=== PATIENT | male | born 1980 | race African-American/Black ===

== ENCOUNTER → 2020-06-06 07:37 | Outpatient (CLI) | payer OTHER, SELFPAY ==
--- NOTE | 2020-06-06 | DI.MRI.S_ITS ---
PROCEDURE: MR LUMBAR SPINE WO CON INDICATIONS: Spinal stenosis, lumbar region TECHNIQUE: Noncontrast sagittal T1 spin echo and T2 fast echo, sagittal STIR, axial T1 and T2 fast spin echo through the lumbar spine. In cases with scoliosis, additional coronal T2 fast spin echo may be performed. COMPARISON: [facility], MR, MR LUMBAR SPINE WITHOUT CONTRAST, 03/13/2018, 8:01. [facility], CR, XR LUMBAR SPINE WITH OBLIQUES, 04/04/2020, 14:06. FINDINGS: Image quality: Excellent. Alignment and Curvature: 5 lumbar type vertebral bodies by plain film. Loss of normal lumbar lordosis. Mild grade 1 retrolisthesis of L4 on L5 and L5 on S1. Bone Marrow: Marrow is of normal overall signal. No acute vertebral body compression fractures. Spinal Cord: Conus medullaris terminates at the upper L2 level. Visualized cord demonstrates normal signal and size. Paraspinous Soft Tissues: No paravertebral masses. L1-L2: Normal appearance. L2-L3: Normal appearance. L3-L4: Mild diffuse disc bulge. Mild facet and ligamentum flavum hypertrophy. Mild epidural lipomatosis. Mild canal stenosis. Mild bilateral foraminal stenosis. No change. L4-L5: Mild facet and ligamentum flavum hypertrophy. Mild epidural lipomatosis. Mild diffuse disc bulge. Mild canal stenosis. Mild bilateral foraminal stenosis. No change. L5-S1: Mild disc height loss and desiccation. Mild diffuse disc bulge with superimposed small central protrusion. Mild facet and ligamentum flavum hypertrophy, right greater than left. Mild canal stenosis. Mild bilateral foraminal stenosis. Right lateral recess stenosis with mild right S1 nerve root compression. No change. IMPRESSION: 1. Multilevel degenerative disc and facet disease, as well as ligamentum flavum hypertrophy and epidural lipomatosis. 2. Mild multilevel canal and foraminal stenosis. 3. Right lateral recess stenosis at L5-S1 associated with right S1 nerve root compression. Recommend correlation with clinical symptoms to ascertain relevance of this finding. Dictated by: Shiv Nugent M.D. on 06/06/2020 at 12:32 Approved by: Shiv Nugent M.D. on 06/06/2020 at 13:09
== END ==
PROVIDERS: Referring Provider Physical Medicine & Rehabilitation; Visit Provider Physical Medicine & Rehabilitation
DX: M48.062 Spinal stenosis, lumbar region with neurogenic claudication (principal); M48.07 Spinal stenosis, lumbosacral region; M51.36 Other intervertebral disc degeneration, lumbar region; M51.37 Other intervertebral disc degeneration, lumbosacral region; E88.2 Lipomatosis, not elsewhere classified
CPT/HCPCS: 72148

== ENCOUNTER → 2021-03-21 16:06 | Outpatient (CLI) | payer OTHER, SELFPAY ==
--- NOTE | 2021-03-21 | DI.MRI.S_ITS ---
PROCEDURE: MR SHOULDER RT WO CON INDICATIONS: Pain in right shoulder TECHNIQUE: Noncontrast oblique coronal T2 fast spin echo with fat saturation, oblique sagittal T1 spin echo and T2 fast spin echo with fat saturation, axial T1 spin echo and T2 fast spin echo with fat saturation through the shoulder. COMPARISON: None. FINDINGS: Image quality: Excellent. Rotator cuff: Tendinosis and low-grade articular and bursal surface partial thickness tear involving distal supraspinatus at its insertion on the humeral head is seen extending to musculotendinous junction. Distal infraspinatus tendinosis at its insertion on the humeral head is seen. Distal subscapularis tendon is intact. Sagittal images demonstrate no rotator cuff muscle atrophy. Bones and bursae: No bone marrow contusions or fractures. Mild acromioclavicular joint osteoarthritic changes are seen with downward osteophyte formation depressing the musculotendinous junction of supraspinatus. Trace amount of subacromial subdeltoid bursal fluid is seen. Capsule and soft tissues: The there is signal abnormality and contour irregularity involving superior anterior labrum at 1:00 Position. The glenohumeral ligaments are intact. The long head of the biceps tendon demonstrates normal location and morphology. The rotator interval appears normal, without fibrosis. The coracohumeral ligament is normal in thickness. IMPRESSION: 1. Tendinosis and low-grade articular and bursal surface partial thickness tear involving distal supraspinatus extending to musculotendinous junction. Distal infraspinatus tendinosis. 2. Mild acromioclavicular joint osteoarthritis. 3. Suggestion of focal superior anterior labral tear at 1:00 position. Dictated by: Guido Bridges M.D. on 03/21/2021 at 17:22 Approved by: Guido Bridges M.D. on 03/21/2021 at 17:28
== END ==
PROVIDERS: Referring Provider Registered Nurse; Visit Provider Registered Nurse
DX: M25.511 Pain in right shoulder (principal); M75.111 Incomplete rotator cuff tear or rupture of right shoulder, not specified as traumatic; M19.011 Primary osteoarthritis, right shoulder
CPT/HCPCS: 73221

== ENCOUNTER → 2022-07-26 09:15 | Outpatient (CLI) | payer OTHER, SELFPAY ==
--- NOTE | 2022-07-26 09:17 | DI.MRI.S_ITS ---
PROCEDURE: MR CERVICAL SPINE WO CON INDICATIONS: Paresthesia of skin TECHNIQUE: Noncontrast sagittal T1 spin echo and T2 fast spin echo, sagittal STIR, foraminal oblique sagittal T2 fast spin echo, and axial gradient echo or T2 fast spin echo through the cervical spine. COMPARISON: None. FINDINGS: Image quality: This examination is limited by involuntary motion artifact. Images are repeated, with some improvement. Alignment and Curvature: There is straightening of the normal cervical lordosis. No focal AP alignment abnormality is seen. Bone Marrow: Marrow demonstrates normal overall signal. Spinal Cord: Visualized spinal cord has normal size and signal. No cerebellar tonsillar herniation. Paraspinous Soft Tissues: No paravertebral masses. Prevertebral soft tissues are normal in thickness. C2-C3: Normal appearance. C3-C4: The disc height and disc signal are relatively well preserved. Mild to moderate disc osteophyte complex is seen. There is moderate right-sided and at least moderate left-sided neural foraminal narrowing. Mild to moderate central canal narrowing is seen. There is associated mass effect upon the ventral spinal cord. C4-C5: The disc height and disc signal are relatively well preserved. Mild to moderate disc osteophyte complex is seen, which is eccentric to the right. There is moderate to severe bilateral neural foraminal narrowing seen. Moderate central canal narrowing is seen. There is associated mass effect upon the ventral spinal cord. C5-C6: The disc height and disc signal are relatively well preserved. Moderate generalized disc osteophyte complex is seen. Mild facet joint hypertrophy is seen. There is at least moderate bilateral neural foraminal narrowing seen. Mild to moderate central canal narrowing is seen. There is associated mass effect upon the ventral spinal cord. C6-C7: The disc height and disc signal are relatively well preserved. A mild degree of generalized disc osteophyte complex is seen. Mild facet joint hypertrophy is seen. Minimal bilateral neural foraminal narrowing can be seen. No significant central canal narrowing is seen. C7-T1: The disc height and disk signal are well-preserved. A mild degree of generalized disc osteophyte complex is seen. Mild facet joint hypertrophy is seen. Mild bilateral neural foraminal narrowing is seen. The central canal is widely patent. IMPRESSION: Multiple levels of premature cervical spine degenerative change are seen, which are worst within the mid cervical spine. Straightening of the normal cervical lordosis is seen, which is commonly observed in patients with muscular spasm. Dictated by: Keegan Christian M.D. on 07/26/2022 at 10:40 Approved by: Keegan Christian M.D. on 07/26/2022 at 10:44
== END ==
PROVIDERS: Referring Provider Registered Nurse; Visit Provider Registered Nurse
DX: M47.812 Spondylosis without myelopathy or radiculopathy, cervical region (principal); R20.2 Paresthesia of skin
CPT/HCPCS: 72141

== ENCOUNTER → 2023-01-10 13:14 | Outpatient (CLI) | payer OTHER, SELFPAY ==
--- NOTE | 2023-01-10 | DI.MRI.S_ITS ---
PROCEDURE: MR LUMBAR SPINE WO CON INDICATIONS: Radiculopathy, lumbar region TECHNIQUE: Noncontrast sagittal T1 spin echo and T2 fast echo, sagittal STIR, and T2 fast spin echo through the lumbar spine. In cases with scoliosis, additional coronal T2 fast spin echo may be performed. COMPARISON: [facility], MR, MR LUMBAR SPINE WO CON, 06/06/2020, 7:51. FINDINGS: Image quality: Excellent. Alignment and Curvature: 5 lumbar type vertebral bodies are present by plain film, with a transitional element at S1. Loss of normal lumbar lordosis. 2 mm of retrolisthesis of L3 on L4, L4 on L5, and L5 on S1. Bone Marrow: Marrow is of normal overall signal. No acute vertebral body compression fractures. Mild reactive signal throughout the endplates of the lumbar spine, most prominent at L5-S1. Spinal Cord: Conus medullaris terminates at the L1-L2 disc space level. Visualized cord demonstrates normal signal and size. Paraspinous Soft Tissues: No paravertebral masses. T12-L1: Normal appearance. L1-L2: Normal appearance. L2-L3: Normal appearance. L3-L4: Mild facet and ligamentum flavum hypertrophy. Mild epidural lipomatosis. Mild diffuse disc bulge. Mild canal stenosis. Mild bilateral foraminal stenosis. No significant change. L4-L5: Mild facet and ligamentum flavum hypertrophy. Mild epidural lipomatosis. Mild disc desiccation and diffuse disc bulge. Mild canal stenosis. Mild bilateral foraminal stenosis. No significant change. L5-S1: Moderate disc desiccation. Mild disc height loss and diffuse disc bulge with superimposed broad-based right posterolateral protrusion. Mild facet and ligamentum flavum hypertrophy. Mild epidural lipomatosis. Moderate canal stenosis, increased from the prior examination. Moderate bilateral foraminal stenosis, increased from the prior examination. IMPRESSION: 1. Multilevel degenerative disc and facet disease, as well as ligamentum flavum hypertrophy and epidural lipomatosis. 2. Multilevel canal and foraminal stenoses, worst at L5-S1 where there is moderate canal stenosis and moderate bilateral foraminal stenosis. Dictated by: Shiv Nugent M.D. on 01/10/2023 at 14:52 Transcribed by: SRINI on 01/10/2023 at 14:54 Approved by: Shiv Nugent M.D. on 01/10/2023 at 16:48
== END ==
PROVIDERS: Referring Provider Physical Medicine & Rehabilitation; Visit Provider Physical Medicine & Rehabilitation
DX: M51.16 Intervertebral disc disorders with radiculopathy, lumbar region (principal); M51.17 Intervertebral disc disorders with radiculopathy, lumbosacral region; M48.061 Spinal stenosis, lumbar region without neurogenic claudication; M48.07 Spinal stenosis, lumbosacral region
CPT/HCPCS: 72148

== ENCOUNTER → 2023-05-21 12:26 | Outpatient (CLI) | payer OTHER, SELFPAY ==
--- NOTE | 2023-05-21 | DI.MRI.S_ITS ---
PROCEDURE: MR SHOULDER RT WO CON INDICATIONS: Right rotar cuff tear TECHNIQUE: Noncontrast oblique coronal T2 fast spin echo with fat saturation, oblique sagittal T1 spin echo and T2 fast spin echo with fat saturation, axial T1 spin echo and T2 fast spin echo with fat saturation through the shoulder. COMPARISON: [facility], MR, MR SHOULDER RT WO CON, 03/21/2021, 16:21. FINDINGS: Image quality: Excellent. Rotator cuff: Low-grade articular and bursal surface partial thickness tear involving distal supraspinatus at its insertion on the humeral head is seen extending to musculotendinous junction. Distal infraspinatus tendinosis and low-grade articular surface partial-thickness tear is seen. Distal subscapularis tendon is intact. No full-thickness rotator cuff tendon rupture. Sagittal images demonstrate no significant rotator cuff muscle atrophy. Bones and bursae: No bone marrow contusions or fractures. Mild acromioclavicular joint osteoarthritic changes are seen with joint space narrowing and small downward osteophyte formation depressing the musculotendinous junction of supraspinatus. The acromion demonstrates conventional anatomy, without an os acromiale. small amount of subacromial subdeltoid bursal fluid is present. Capsule and soft tissues: There is signal abnormality and contour irregularity involving superior anterior labrum at 1 to 2 o'clock position suggestive of superior anterior labral tear. The long head of the biceps tendon demonstrates normal location and morphology. The rotator interval appears normal, without fibrosis. The coracohumeral ligament is normal in thickness. IMPRESSION: 1. Low-grade articular and bursal surface partial thickness tear involving distal supraspinatus extending to musculotendinous junction. Low-grade articular surface partial-thickness tear involving distal infraspinatus. No full-thickness rotator cuff tendon rupture. No muscle atrophy. 2. Mild acromioclavicular joint osteoarthritis. No shoulder fracture or dislocation. Small amount of subacromial subdeltoid bursal fluid, no loose bodies. 3. Suggestion of superior anterior labral tear at 1 to 2 o'clock position. Dictated by: Guido Bridges M.D. on 05/21/2023 at 21:27 Approved by: Guido Bridges M.D. on 05/21/2023 at 21:30
== END ==
PROVIDERS: Referring Provider Orthopaedic Surgery; Visit Provider Orthopaedic Surgery
DX: M75.111 Incomplete rotator cuff tear or rupture of right shoulder, not specified as traumatic (principal); M19.011 Primary osteoarthritis, right shoulder
CPT/HCPCS: 73221

== ENCOUNTER → 2023-07-14 09:52 | Outpatient (CLI) | payer OTHER, SELFPAY ==
[2023-07-14 11:15] LABS: Add Manual Diff / Slide Review NO; Basophils Absolute Auto 0 /uL (0-100); Basophils Percent Auto 0.5 % (0-2); Eosinophils Absolute Auto 0 /uL (0-450); Eosinophils Percent Auto 0.6 % (2-4); Hematocrit 38.7 % (41-53); Hemoglobin 12.9 g/dL (13.5-17.5); Lymphocytes Absolute Auto 1500 /uL (1100-4500); Lymphocytes Percent Auto 20.1 % (25-40); Mean Corpuscular HGB Conc 33.4 % (30-36); Mean Corpuscular Hemoglobin 29.8 PG (26-34); Monocytes Absolute Auto 600 /uL (0-900); Monocytes Percent Auto 7.9 % (3-14); Neutrophils Absolute Auto 5100 /uL (1500-7000); Neutrophils Percent Auto 70.9 % (50-75); Platelet Count 212 X10^3/uL (150-400); Red Blood Cell Count 4.35 X10^6/uL (4.5-5.9); Red Cell Distribution Width 13.9 % (11.6-14.8); White Blood Cell Count 7.2 X10^3/uL (4.5-11.0)
[2023-07-14 11:21] LABS: Hemoglobin A1C% w Est Avg Glu 5.1 % (4.0-6.0)
[2023-07-14 11:41] LABS: BUN Creatinine Ratio 12.6 (6-22); Blood Urea Nitrogen 12 mg/dL (9-20); Carbon Dioxide 33 mmol/L (22-32); Chloride 97 mmol/L (98-107); Estimated Glomerular Filt Rate > 60 mL/min (>60); Glucose 118 mg/dL (70-100); HEMOLYSIS < 15 (0-50); Potassium 3.5 mmol/L (3.4-5.1); Sodium 136 mmol/L (137-145)
== END ==
PROVIDERS: Referring Provider Orthopaedic Surgery Orthopaedic Surgery of the Spine; Visit Provider Orthopaedic Surgery Orthopaedic Surgery of the Spine
DX: Z01.812 Encounter for preprocedural laboratory examination (principal); R73.9 Hyperglycemia, unspecified
CPT/HCPCS: 36415; 80048; 83036; 85025

== ENCOUNTER → 2023-07-17 13:01 | Outpatient (CLI) | payer OTHER, SELFPAY | PROVIDERS: Referring Provider Orthopaedic Surgery Orthopaedic Surgery of the Spine; Visit Provider Orthopaedic Surgery Orthopaedic Surgery of the Spine | DX: Z01.818 Encounter for other preprocedural examination (principal) | CPT/HCPCS: 93005 ==

== ENCOUNTER 2023-08-08 11:15 | Inpatient (IN) | payer OTHER, SELFPAY ==
[2023-07-31 13:44] VITALS: BMI 28.0
[2023-08-08] VITALS (13 sets, daily range): BP systolic 138–208; BP diastolic 74–130; PULSE 66–88; RESP 11–18; TEMP 36.1–36.6; O2SAT 98–100; BMI 28.0
--- NOTE | 2023-08-08 11:50 | PM.PREOP ---
Pre-operative Note Interval Note History & Physical reviewed/Exam performed by Physician: Yes Changes to H&P: No
[2023-08-08] MEDS: LACTATED RINGERS 1,000 ML 42 ML IV ×2 (11:52→13:57)
[2023-08-08] MEDS: ACETAMINOPHEN 325 MG TABLET 975 MG PO (11:53)
[2023-08-08] MEDS: CEFAZOLIN 2 GM/100 ML PREMIX 100 ML IV ×2 (12:52→20:26)
--- NOTE | 2023-08-08 12:57 | SUR.OPER ---
Prone on spine table, head in foam head support, padded chest and pelvic supports, gel pad at knees, lower legs supported by pillows; nipples, genitalia and toes free of pressure, arms secured on foam padded arm boards at <90 degrees abduction. Tape over blanket at thigh secured to table.
[2023-08-08] MEDS: BUPIVACAINE 0.25% (PF) 60 ML, EPINEPHrine 0.15 MG INJ (13:58)
[2023-08-08] MEDS: BUPIVACAINE LIPOSOME 266 MG/20 ML VIAL INJ (14:37)
--- NOTE | 2023-08-08 14:54 | P.OP_ITS ---
Operative Date/Time/Diagnoses Date of procedure: 08/08/23 Time of procedure: 12:30 Pre-op diagnosis: 1. L5-S1 spinal stenosis with radiculopathy 2. Epidural lipomatosis 3. L5-S1 right foraminal stenosis Post-op diagnosis: same Procedure & Clinicians Procedure: 1. L5-S1 Postero-lateral and posterior interbody fusion 2. L5-S1 interbody cage placement. 3. L5-S1 decompressive laminectomy with bilateral facetecomies 4. L5-S1 Posterior non-segmental instrumentation 5. [place] of bone marrow from iliac crest 6. Utilization of microsurgical technique and operating microscope Same procedure as scheduled: Yes Indications: Patient has been having chronic back pain and worsening lumbar radiculopathy. Patient failed multiple conservative management with worsening pain weakness and numbness in his lower extremity. Patient has been having difficulty performing activity of daily living. After discussing risks benefits of treatment options, patient elected proceed with surgery. Surgeon: Janelle Whitmore Machinist Wood: Ernestina Grewal Click Yes if Unassisted: No Anesthesia Type: General Operative Notes Closure Type: primary Specimen(s): none sent Prosthetic devices, grafts, tissues, transplants, or devices: Globus revolve screws, Rise cage Estimated Blood Loss (mL): 50 Blood products transfused: none Procedure in detail: Patient was seen in the preoperative area. Risks and benefits of the surgery was discussed with the patient. Informed consent was obtained from the patient and placed in the chart. Surgical site was marked. Patient was taken to the operative room. General anesthesia was administered. Prophylactic antibiotic was given to the patient less than 30 min before the incision was made. Patient was placed into a prone position on the Alexander table. Patient's back was then prepped and draped in the sterile fashion. Time-out was performed at this time. Using AP and lateral C-arm imaging the interval between L5-S1 was identified and marked on patient's back. A 2 inch incision 2 in from midline was made on the right side first. The fascia was incised in line with skin incision. Globus MARS retractors was placed inside the incision and docked onto the L5 lamina. Using microsurgical technique and operating microscope, a L5 laminectomy and L5- S1 facetectomy was performed using a Kerrison rongeur. The laminectomy and facetectomy was performed in order to decompress patient's cauda equina as well as the nerve roots exiting at the L5-S1 level. The disc space at L5-S1 was identified. And a total diskectomy was performed at L5-S1 level. The endplates were decorticated using a rasp and shaver. The total diskectomy and decortication was performed at L5-S1 level in order to to accomplish a L5-S1 fusion. The local bone from the laminectomy and facetectomy was saved for local bone grafting. After the total diskectomy and decortication was completed, DBM bone graft material was combined with local bone that was harvested earlier. At this time, a separate skin is incision was made over the iliac crest. A Jamshidi needle was inserted into the iliac crest through a separate skin incision. 5 cc of bone marrow aspiration was obtained through the separate skin incision using a Jamshidi needle from the iliac crest. The bone marrow aspiration was combined with local bone and the DBM bone grafting material. The bone grafting material was placed into the L5-S1 interbody space along with a expandable cage. The cage was expanded to its maximum height using the torque limiting screwdriver. At this time a mirror image incision was made on the left side. The fascia was incised in line with the skin incision. Globus MARS retractor was inserted and docked onto the L5-S1 posterolateral gutter. Using the power drill, posterior- lateral decortication was performed at L5-S1 level until bleeding cortical bone was identified. The remaining bone grafting material was placed into the L5-S1 posterior lateral gutter he order to accomplish posterolateral fusion at the L5- S1 level. Using the double C-arm technique, pedicle screws were placed into the L5-S1 pedicles bilaterally. This was done by placing the Jamshidi needle into the pedicles, then placing the guidewires over the Jamshidi needle, and finally placing the cannulated screws over the guidewires bilaterally. After the pedicle screws were placed, 2 titanium rods was locked into the heads of the pedicle screws using locking caps and torque limiting screwdriver. After all the hardware was placed, and confirmed with AP and lateral C-arm imaging, the wound was then irrigated with sterile normal saline and packed with Ray-Kee gauze for 3 min to accomplish hemostasis. After the gauze was removed the deep fascia was closed with #1 Vicryl suture. The subcutaneous layer was closed with 2-0 Vicryl. The skin was closed with skin nikolay. Patient tolerated the procedure well. There were no complications. The Operation could not have been safely performed without compromising the technical result or length of the procedure, without the assistance of a skilled surgical garment fitter. The surgical garment fitter was medically necessary for proper positioning, retraction and manipulation of instruments, proper exposure, surgical preparation, and manipulation of tissue. Complications: none Post-operative Condition: stable Disposition: PACU Plan for aftercare: Admit to inpatient hospital
--- NOTE | 2023-08-08 14:58 | DI.RAD.S_ITS ---
PROCEDURE: XR LUMBAR SPINE 2-3V INDICATIONS: L5-S1 TLIF TECHNIQUE: 2 views of the lumbar spine were acquired. COMPARISON: None. FINDINGS: Fluoroscopic guidance utilized for an L4-5 transverse interbody fusion. IMPRESSION: Fluoroscopic guidance. Dictated by: Francisco Javier Jaimes M.D. on 08/08/2023 at 15:18 Approved by: Francisco Javier Jaimes M.D. on 08/08/2023 at 15:19
[2023-08-08] MEDS: HYDROMORPHONE 1 MG INJ IV ×3 (15:06→15:25)
[2023-08-08] MEDS: ONDANSETRON 4 MG/2 ML INJ IV (15:09)
[2023-08-08] MEDS: hydrOXYzine 50 MG/ML INJ 25 MG IM (15:15)
[2023-08-08] MEDS: OXYCODONE IR 5 MG TABLET PO ×2 (15:15→15:28)
[2023-08-08] MEDS: LACTATED RINGERS 1,000 ML 125 ML IV (17:05)
[2023-08-08] MEDS: OXYCODONE IR 10 MG TABLET PO (20:21)
[2023-08-08] MEDS: SENNOSIDES 8.6 MG TABLET 17.2 MG PO (20:21)
[2023-08-08] MEDS: DOCUSATE 100 MG CAPSULE PO (20:22)
[2023-08-08] MEDS: hydrOXYzine pamoate 25 MG CAPSULE PO (20:22)
[2023-08-09 00:27] VITALS: BP 158/82; PULSE 66; RESP 18; TEMP 36.2; O2SAT 99
[2023-08-09] MEDS: ACETAMINOPHEN 325 MG TABLET 650 MG PO ×2 (00:29→11:39)
[2023-08-09] MEDS: OXYCODONE IR 10 MG TABLET PO ×3 (00:29→09:16)
[2023-08-09] MEDS: hydrOXYzine pamoate 25 MG CAPSULE PO ×2 (01:28→09:18)
[2023-08-09] MEDS: HYDROMORPHONE 0.5 MG INJ IV (01:28)
[2023-08-09] MEDS: LACTATED RINGERS 1,000 ML 125 ML IV ×2 (01:28→09:52)
[2023-08-09 04:32] VITALS: BP 127/72; PULSE 62; RESP 18; TEMP 36.4; O2SAT 98
[2023-08-09] MEDS: CEFAZOLIN 2 GM/100 ML PREMIX 100 ML IV (04:34)
[2023-08-09 09:07] VITALS: BP 136/82; PULSE 71; TEMP 36.6; O2SAT 100
[2023-08-09] MEDS: DOCUSATE 100 MG CAPSULE PO (09:17)
[2023-08-09] MEDS: CHLORTHALIDONE 25 MG TABLET PO (09:17)
[2023-08-09] MEDS: atenoloL 25 MG TABLET 75 MG PO (09:17)
[2023-08-09] MEDS: AMLODIPINE 5 MG TABLET 10 MG PO (09:17)
--- NOTE | 2023-08-09 09:28 | PC.NURSE ---
Dressing changed per Dr. Escamilla's request, abd pad with plastic tape.
--- NOTE | 2023-08-09 09:45 | PT.IIE ---
Current Diagnoses Spondylolisthesis, lumbosacral region (08/08/23) Spinal stenosis, lumbar region with neurogenic claudication (08/08/23) Surgery Performed Operation Date: 08/08/23 12:45 Actual Procedures p L5-S1 TLIF - Janelle Whitmore MD Surgical History (Last Updated 07/31/23 @ 14:10 by Indira Chang, RN) H/O vasectomy History of carpal tunnel release of both wrists (09/01/22) Hx of tonsillectomy Medical History (Last Updated 07/31/23 @ 14:10 by Indira Chang, RN) Depression HTN (hypertension) PADDY on CPAP Right rotator cuff tear Sciatica Spinal stenosis Physical Therapy Inpatient Evaluation/Re-Eval M1 PT/OT-IP Prior Functional Status Start: 08/09/23 12:10 Freq: NEEDED Status: Active Protocol: Document 08/09/23 09:45 AB (Rec: 08/09/23 12:21 [facility] Medical Review Prior Functional Status Medical History Reviewed Yes Communication able to make needs known Mobility and Gait pt stated that he was independent with all mobilities and ambulation without AD Social History Household Members spouse Living Arrangements House Number of Floors (Floors) One Floor Number of Stairs To Enter/Railing? 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 M2 PT-IP Current Condition Start: 08/09/23 12:10 Freq: NEEDED Status: Active Protocol: Document 08/09/23 09:45 AB (Rec: 08/09/23 12:21 AB [id number]) Physical Therapy Current Condition Current Condition Evaluation Date 08/09/23 Treatment Diagnosis s/p L5S1 TLIF; difficulty in walking Onset Date 08/08/23 M3 PT-IP Subjective Start: 08/09/23 12:10 Freq: NEEDED Status: Active Protocol: Document 08/09/23 09:45 AB (Rec: 08/09/23 12:21 AB [id number]) Subjective Physical Therapy Visit Type Type Initial Evaluation Visit Start Time 09:45 Visit Stop Time 10:30 Total Visit Minutes 45 Number of TURRET LATHE TENDER Visits 0 Physical Therapy Visit Comments Patient Comments agreeable to do PT Therapy Pain Assessment Pain When Pain Assessed At Rest Pain Present Pain Present Pain Reported Location lower back Intensity 3 Scale Used Numeric (0 - 10) Pain Management Techniques Distraction,Modification of Treatment,Re-positioning, Timing of Activity with Medications M4 PT-IP Mobility and Gait Start: 08/09/23 12:10 Freq: NEEDED Status: Active Protocol: Document 08/09/23 09:45 AB (Rec: 08/09/23 12:21 AB [id number]) PT-Bed Mobility Assessment Rolling Type of Rolling Log Rolling Level of Assist Standby Assistance Supine to Sit Supine to Sit Standby Assistance Sit to Supine Sit to Supine Standby Assistance PT-Transfer Assessment Sit to and From Stand Sit to and from Stand Standby Assistance,1 Person Assistance Equipment Transfer Assistive Device Gait Belt,Front Wheeled Walker Orthotic/Prosthetic Devices or Brace: Yes Transfers Transfer Destination Chair Transfer Technique ambulated Transfer Ability Level of Assist Standby Assistance Comments Mobility Comments pt supine in bed. BP: 137/87. pt provided with post-op folder and reviewed contents. pt educated with his back precautions and log roll bed mobility. pt completed log roll supine to sit SBA with max cues for techniques. pt able to sit on EOB SBA. no c/o dizziness. completed sit to stand SBA with cues and ambulated ~ 30 ft in room using FWW SBA. pt sat back on EOB and completed sit <>supine SBA without cues needed. pt ambulated to the chair using FWW SBA. educated pt on 4WW use/brakes. completed sit to stand from the chair SBA and ambulated with 4WW ~ 200 ft SBA. pt completed up/down platform step using SPC SBA to CGA. pt ambulated back to his room using 4WW SBA. positioned pt on the chair. call light and table placed within reach. Gait Assessment Gait Gait Assistance Required: Standby Assistance Distance (Feet) 200 Able to Maintain Weight Bearing Status Yes During Gait Assistive Devices Assistive Device Gait Belt,Front Wheeled Walker ,4 Wheeled Walker Orthotic/Prosthetic Devices or Brace: No Factors Limiting Gait Function Factors Limiting Gait Function Decreased Activity Tolerance, Decreased Strength,Limited Range of Motion,Pain,Poor Balance Stair Climbing Assessment Evaluation Level of Assist On Stairs Standby Assistance,Contact Guard Assistance Devices Stair Climbing Assistive Devices Straight Cane Technique/Endurance Stair Climbing Direction Ascend and Descend Stair Climbing Technique Step to Step Number of Steps Climbed 1 Query Text: Stair Climbing Set # Repetitions (reps) 2 PT-Balance Assessment Sitting Balance and Reactions Static Sitting Balance Ability Normal Dynamic Sitting Balance Ability Good Standing Balance and Reactions Static Standing Balance Ability Good Dynamic Standing Balance Ability Fair Device Used 4WW M5 PT-IP Objective Assessments Start: 08/09/23 12:10 Freq: NEEDED Status: Active Protocol: Document 08/09/23 09:45 AB (Rec: 08/09/23 12:21 AB [id number]) Orientation Orientation/Cognition Level of Alertness Alert Orientation Name,Place,Situation Language Function Ability No Deficits Noted Safety Awareness Understands Safety Issues Memory Description No Deficits Noted Gross Range of Motion Lower Extremity ROM Assessment Within Functional Limits Strength Lower Extremity Strength Assessment Within Functional Limits Coordination Assessment Gross Coordination Gross Coordination WNL Muscle Tone Muscle Tone WNL Yes M6 PT-IP Treatment Start: 08/09/23 12:10 Freq: NEEDED Status: Active Protocol: Document 08/09/23 09:45 AB (Rec: 08/09/23 12:21 [facility] Physical Therapy Treatment Education Education Provided Precautions,Weight Bearing Status,Post-Op Packet,Safety M7 PT-IP Assessment and Plan Start: 08/09/23 12:10 Freq: NEEDED Status: Active Protocol: Document 08/09/23 09:45 AB (Rec: 08/09/23 12:21 AB [facility]) PT Summary Assessment and Plan Potential Rehabilitation Potential Good Status of Condition at Evaluation Stable Summary Impairments Pain,ROM,Strength,Balance, Coordination,Sensation,Tone, Cognition,Bed Mobility, Transfers,Gait,Activity Tolerance Assessment Summary pt is a 42 y/o M who underwent L5S1 TLIF. pt requiring SBA with mobility using 4WW and SBA to CGA with stair climbing using SPC. pt plans to go home and spouse to assist him. pt may go home when medically stable. Goals Bed Mobility Goal Independent Transfer Goal Independent,Front Wheeled Walker Gait Goal Independent,Front Wheel Walker Gait Distance 300 Other Goals up/down 2 steps using SPC mod I Days to Meet Goals 3 Frequency of Treatment Frequency Of Treatment Twice a Day Treatment Plan Physical Therapy Treatment Plan Bed Mobility Training,Transfer Training,Gait Training, Therapeutic Exercise,Balance Retraining,Post Op Education, Discharge Planning,Hot or Cold Pack,Neuromuscular Re-ed, Coordination Retraining,Manual Therapy Precautions Lumbar Precautions Log Roll,No Twisting,Limit Bending,Lifting Restriction of 10 lbs,Gait Belt above Incisional Area Recommendations To Nursing Amount of Assist Needed Standby Assistance Discharge Recommendations PT Discharge Recommendations Home with Assistance Equipment Needed for Home Before SPC Discharge Transportation Needs at Discharge Private Vehicle
--- NOTE | 2023-08-09 09:52 | PM.DS.1 ---
History of Present Illness History of Present Illness Date Patient Seen: 08/09/23 Time Patient Seen: 09:30 Chief complaint: INPT Narrative: Procedure: 1. L5-S1 Postero-lateral and posterior interbody fusion 2. L5-S1 interbody cage placement. 3. L5-S1 decompressive laminectomy with bilateral facetecomies 4. L5-S1 Posterior non-segmental instrumentation 5. [place] of bone marrow from iliac crest 6. Utilization of microsurgical technique and operating microscope Same procedure as scheduled: Yes Indications: Patient has been having chronic back pain and worsening lumbar radiculopathy. Patient failed multiple conservative management with worsening pain weakness and numbness in his lower extremity. Patient has been having difficulty performing activity of daily living. After discussing risks benefits of treatment options, patient elected proceed with surgery. Surgeon: Janelle Whitmore Bioinformatics Technician: Ernestina Grewal Click Yes if Unassisted: No Anesthesia Type: General Discharge Providers Provider Date of admission: 08/08/23 11:15 Discharge Date: 08/09/23 Consults: 08/08/23 15:57 Consult to Occupational Therapy Evaluate & Treat Comment: Physician Instructions: Evaluate and treat Consult to Physical Therapy Evaluate & Treat Comment: Physician Instructions: Evaluate and Treat Discharge provider: Luc Olivas PA-C Summary Hospital Course Discharge Diagnosis: 1. L5-S1 spinal stenosis with radiculopathy 2. Epidural lipomatosis 3. L5-S1 right foraminal stenosis 4. Status post lumbar fusion Status at Discharge Cognitive/behavioral status at discharge: oriented Functional status at discharge: uses cane/walker Exam Vital Signs (past 8 hours): - 08/09/23 04:32 08/09/23 09:07 Temperature 97.6 F 97.8 F Pulse Rate 62 71 Respiratory Rate 18 Blood Pressure 127/72 136/82 Pulse Oximetry 98 100 Oxygen Flow Rate 0 Oxygen Delivery Method Room Air Oxygen Flow Rate 0 Narrative Exam Narrative: 5/5 strength in hip flexors, quadriceps, hamstrings, DF, PF, EHL bilaterally. Sensation to light touch intact throughout BLE. Calves soft, compressible, nontender. ?Dressing placed intraoperatively CDI. Const General: cooperative, healthy appearing, comfortable and well groomed Nutritional Appearance: average body habitus Orientation: alert and oriented x3 Resp Effort & Inspection: normal respiratory effort and able to speak in complete sentences [facility] Medical History (Updated 07/31/23 @ 14:10 by Indira Chang RN) Depression Right rotator cuff tear HTN (hypertension) PADDY on CPAP Sciatica Spinal stenosis Surgical History (Updated 07/31/23 @ 14:10 by Indira Chang RN) Hx of tonsillectomy H/O vasectomy History of carpal tunnel release of both wrists (09/01/22) Social History household members: spouse Smoking Status: Former smoker alcohol intake: current Discharge Assessment & Plan Assessment and Plan Assessment: Status Post Lumbar Fusion Plan of Treatment: Discharge to home, pending PT approval. Discharge Plan Discharge Plan Patient Disposition: Home Discharge orders & Medications Prescriptions: New acetaminophen 325 mg Tablet 650 mg PO Q6H PRN (Reason: pain (scale score 1-3)) Qty: 60 0RF docusate sodium 100 mg Capsule 100 mg PO BID Qty: 20 0RF oxycodone 10 mg tablet 10 mg PO Q4H PRN (Reason: pain (scale score 7-10)) Qty: 40 0RF Continued atenolol 25 mg Tablet 75 mg PO DAILY chlorthalidone 25 mg Tablet 25 mg PO DAILY amlodipine 10 mg Tablet 10 mg PO DAILY Discontinued ibuprofen 800 mg Tablet 800 mg PO BID PRN (Reason: Pain) acetaminophen 500 mg Tablet 1,000 mg PO DAILY PRN (Reason: Pain) Follow up/Referrals: Janelle Whitmore MD [Physician] - As previously scheduled (Follow up w/ Dr Whitmore on 08/21/2023 @ 3:20 pm at [facility].) Diet/Activity/Treatments Diet: Diet as Tolerated Activity: No deep bending or twisting at the waist. No lifting more than 10 pounds. Cold/Heat Therapy: Ice pack low back as needed for pain. Skin/Wound/Dressing Care Report to your healthcare provider any signs of infection, such as:: chills, fever, night sweats, unusual drainage and unusual redness Dressing: May shower. Keep dressing as dry as possible. If dressing becomes wet or dirty, remove and replace with clean, dry gauze. Visit Report/Discharge Packet Instructions: DI for Prescription Opioid Use, DI for Transforaminal Lumbar Interbody Fusion Quality VTE Deep Vein Thrombosis/Pulmonary Embolism Present on Admission: No
--- NOTE | 2023-08-09 13:45 | CM.DANOTE ---
Initial DCP Assessment Note Pt is a 42 yo male, resident of [place], POD1 Status Post Lumbar Fusion PCP: Unknown Payer: [place] Reviewed chart, pt discussed in multidisciplinary rounds this morning. Therapy has cleared pt for return home w/spouse to assist and pt has planned for home, DC order from Ortho has already been initiated this morning. No barriers identified at this time to patient's safe discharge home w/family to assist; close outpatient f/u recommended. CM team will plan to follow closely in case any DC needs or concerns arise. JIMI Candelaria Discharge Planning/Care Management CM Discharge Assessment Start: 08/09/23 13:43 Freq: Status: Active Protocol: Document 08/09/23 13:43 AUBREY (Rec: 08/09/23 13:45 AUBREY [id number]) Discharge Planning Assessment Assigned Stringed Instrument Repairer JIMI Grimm DPOA/Assigned Designee Name Francisca Young, spouse Contact Information [phone] Advance Directives? Yes Advance Directives on File No History Provided By Patient,Medical Record Prior Living Arrangements House Household Members spouse Type of transporation used prior to Drives own vehicle admit Independent with ADL's Yes Is patient alert and oriented? Yes Patient/Family Preference OP PT Therapy Barriers to Discharge No Discharge Plan Home Transportation Arrangement Spouse Referrals Initiated None needed
== END 2023-08-09 13:50 | disposition home or self-care (01) | DRG 455 ==
PROVIDERS: Admitting Provider Orthopaedic Surgery Orthopaedic Surgery of the Spine; Referring Provider Orthopaedic Surgery Orthopaedic Surgery of the Spine; Visit Provider Orthopaedic Surgery Orthopaedic Surgery of the Spine
PROC: 0SG30AJ Fusion of Lumbosacral Joint with Interbody Fusion Device, Posterior Approach, Anterior Column, Open Approach (ICD-10-PCS; principal; 2023-08-08 12:45)
DX: M48.07 Spinal stenosis, lumbosacral region (principal); E88.2 Lipomatosis, not elsewhere classified; M43.17 Spondylolisthesis, lumbosacral region; M54.17 Radiculopathy, lumbosacral region; I10 Essential (primary) hypertension; Z87.891 Personal history of nicotine dependence
CPT/HCPCS: 72100; 76000; 97161; 97530; C1713; C1831; C9290; J0171; J0690; J1100; J1170; J2250; J2405; J2704; J3010; J3410

== ENCOUNTER → 2023-10-28 15:58 | Outpatient (CLI) | payer OTHER, SELFPAY ==
[2023-08-08 16:00] VITALS: BMI 28.0
--- NOTE | 2023-10-28 | DI.MRI.S_ITS ---
PROCEDURE: MRFOOT LT WO CON INDICATIONS: BILATERAL FOOT PAIN TECHNIQUE: Multiphasic, multisequence MRI of the forefoot was performed, without intravenous contrast administration. COMPARISON: None. FINDINGS: Image quality: Excellent. Bones and joints: Osseous edema is seen within the medial hallux sesamoid. Well degenerative disease to the 1st metatarsophalangeal joint, metatarsal sesamoid articulations, and in the interphalangeal joints of the toes. Sesamoids are normally aligned. No intraosseous lesions. Soft tissues: The visualized plantar foot muscles demonstrate normal signal and bulk. Visualized flexor and extensor tendons appear intact, without tenosynovitis. The distal insertions of the peroneus brevis and longus tendons appear intact. The principal Lisfranc ligament appears intact. Small amount of fluid is seen in the subcutaneous tissues plantar to the medial hallux sesamoid and there is similar trace fluid plantar to the 5th metatarsal head, likely adventitial bursal fluid collections. No interdigital mass. Sagittal images demonstrate no evidence for plantar plate tears. IMPRESSION: 1. Osseous edema within the medial hallux sesamoid may be related to degenerative subchondral edema versus osseous contusion, nondisplaced fracture, or sesamoiditis. 2. Mild osteoarthrosis at the metatarsal-sesamoid articulations, 1st metatarsophalangeal joint, and the interphalangeal joints of the toes. 3. Small adventitial bursal effusions in the subcutaneous tissues plantar to the 1st and 5th metatarsal heads. Approved by: Brayan Prabhakar M.D. on 10/29/2023 at 10:37
--- NOTE | 2023-10-28 | DI.MRI.S_ITS ---
PROCEDURE: MR FOOT RT WO CON INDICATIONS: BILATERAL FOOT PAIN TECHNIQUE: Multiphasic, multisequence MRI of the forefoot was performed, without intravenous contrast administration. COMPARISON: None. FINDINGS: Image quality: Excellent. Bones and joints: Trace edema is seen within the medial hallux sesamoid. Lateral sesamoid is intact. Mild degenerative changes at the metatarsal sesamoid articulations. [id number] degenerative changes at the 1st metatarsophalangeal joint. Mild scattered degenerative changes at the interphalangeal joints of the toes. No intraosseous lesions. Soft tissues: The visualized plantar foot muscles demonstrate normal signal and bulk. Visualized flexor and extensor tendons appear intact, without tenosynovitis. The distal insertions of the peroneus brevis and longus tendons appear intact. The principal Lisfranc ligament appears intact. Trace adventitial bursal effusion in the subcutaneous tissues plantar to the 5th metatarsal head. A 15 x 6 x 9 mm ganglion cyst is insulin noted along the lateral aspect of the talonavicular joint, included at the margins of the field of view of this exam. Sagittal images demonstrate no evidence for plantar plate tears. IMPRESSION: 1. Mild osseous edema in the medial hallux sesamoid is favored to be related to degenerative changes versus possibly an osseous contusion or sesamoiditis. 2. Mild osteoarthrosis of the metatarsal-sesamoid articulations, 1st metatarsophalangeal joint, and the interphalangeal joints of the toes. 3. Small adventitial bursal effusion in the subcutaneous tissues plantar to the 5th metatarsal head. 4. Small ganglion cyst along the lateral talonavicular joint measuring up to 15 mm in maximum dimension. Approved by: Brayan Prabhakar M.D. on 10/29/2023 at 10:39
== END ==
LOC: MRI 15:59
PROVIDERS: Referring Provider Registered Nurse; Visit Provider Registered Nurse
DX: M19.072 Primary osteoarthritis, left ankle and foot (principal); M19.071 Primary osteoarthritis, right ankle and foot; M25.475 Effusion, left foot; M25.474 Effusion, right foot; M67.471 Ganglion, right ankle and foot; M79.671 Pain in right foot; M79.672 Pain in left foot
CPT/HCPCS: 73718

== ENCOUNTER 2024-06-10 06:27 | Day surgery (SDC) | payer OTHER, SELFPAY ==
[2023-08-08 16:00] VITALS: BMI 28.0
[2024-06-08 14:39] VITALS: BMI 28.5
[2024-06-10] MEDS: LACTATED RINGERS 1,000 ML 42 ML IV (07:03)
[2024-06-10 07:14] VITALS: BP 162/91; PULSE 73; RESP 18; TEMP 36.3; O2SAT 99; BMI 27.2
--- NOTE | 2024-06-10 07:29 | PM.PREOP ---
Pre-operative Note Interval Note History & Physical reviewed/Exam performed by Physician: Yes Changes to H&P: No
[2024-06-10] MEDS: CEFAZOLIN 2 GM/100 ML PREMIX 100 ML IV (07:55)
--- NOTE | 2024-06-10 08:27 | SUR.OPER ---
Beach chair with [employer] shoulder positioner. Lower body on padded OR bed. Head in foam padded head cradle, secured with straps. Non-operative arm secured <90 degrees abduction. Pillow under knees. Safety belt at thigh. Cloth tape over blanket over lower legs.
[2024-06-10] MEDS: BUPIVACAINE 0.5% (PF) 30 ML, EPINEPHrine 0.15 MG INJ (08:50)
[2024-06-10 09:05] VITALS: BP 142/88; PULSE 75; RESP 17; TEMP 36.4; O2SAT 98
[2024-06-10] MEDS: SODIUM CHLORIDE IRRIG SOLUTION 3,000 ML, EPINEPHrine 1 MG IRR (09:05)
--- NOTE | 2024-06-10 09:06 | PM.OP.1 ---
Operative Date/Time/Diagnoses Date of procedure: 06/10/24 Time of procedure: 08:00 Pre-op diagnosis: Right shoulder impingement with partial rotator cuff tear Post-op diagnosis: same Procedure & Clinicians Procedure: Right shoulder subacromial decompression with extensive debridement Same procedure as scheduled: Yes Indications: Right shoulder pain and weakness with positive impingement signs and MRI findings positive for partial rotator cuff tear Surgeon: Angelo Griffiths Envelope Sealer: Balbina Landeros Anesthesia Type: General and Peripheral nerve block Operative Notes Findings: Partial tearing to the right rotator cuff but relatively mild no sign of any high-grade partial tears or full-thickness tears. No sign of any significant arthritic changes in the glenohumeral joint. Some degenerative changes to the labrum with a type 1 slap tear but no sign of any extension into the bicipital anchor no sign of any peel-off sign. Significant bursitis and synovitis in the subacromial and subdeltoid space with mild partial tearing to the bursal aspect of the rotator cuff. Impingement lesion in the acromial arch but no sign of any significant arthritic changes to the AC joint. No sign of any mass effect due to inferior osteophytes. Closure Type: primary Estimated Blood Loss (mL): 0 Procedure in detail: On date of service, Patient was met in the holding area. The operative site was signed and witnessed by the OR staff. The surgeries once again discussed with the patient and any remaining questions they had were answered fully. Patient was taken back to the operating theater and placed on the operating table in a supine position. Great care was taken to ensure that all bony prominences were properly padded. Patient was then placed into the beach chair position. The head and neck were properly positioned and secured. A timeout was performed verifying patient's name, procedure, and the operative site. The right upper extremity was then prepped and draped in the normal sterile fashion. Previously, the bony anatomy and portal sites were marked out as well as injected with Marcaine with epinephrine. An 11 blade was used to make an incision in the posterior aspect of the shoulder. The camera was placed, and a diagnostic shoulder scope was performed. Findings listed above. Next under direct visualization, a anterior portal was made. Shaver was placed into the anterior portal and a extensive debridement of the glenohumeral joint was performed. Shaver was used to debride the degenerative changes throughout the labrum as well as a type 1 slap tear. Also used to debride the partial tearing to the articular surface of the rotator cuff. We debrided down to more healthy rotator cuff tissue. Next the camera was placed into the subacromial space. A lateral portal was obtained under direct visualization. A combination of the shaver and vapor wand, a debridement of the inflamed tissue as well as inflamed bursa was performed. The lateral gutter was also cleaned out. This gave us good visualization of the bursal aspect of the rotator cuff as well as the acromial arch. There was an obvious impingement lesion in the acromial arch. Shaver was used to remove the significant bursitis and synovitis in the subacromial and subdeltoid space. Also used to debride the mild partial tearing to the bursal aspect of the rotator cuff. Next we turned our attention to the subacromial decompression. Next, a mary alice was then used to do a subacromial decompression. This allowed us to convert the acromion to a type I acromial. This also allowed us to shave down the bony lesion in the acromial space. The rasp was placed into the lateral portal as well as the anterior portal in order to do a complete subacromial decompression. We then turned our attention to the rotator cuff tear. Shaver was used to debride once again any fraying or partial tearing to the superior portion of the rotator cuff. Also used to remove any remaining synovitis and inflamed bursal tissue. The shoulder was then taken through range of motion and there was no sign of any additional impingement. Next, the suprascapular nerve was blocked. Patient's shoulder was then cleaned dried and dressed and patient was taken to the PACU in stable condition. The assistance of a skilled surgical territory manager was necessary during this procedure for placement and stabilization of the right upper extremity. Helping with positioning of the arm during surgery as well as stabilization of portal sites and instruments throughout the case. The case would have been much longer and more difficult had an certified dental assistant not been available. The services of the surgical territory manager were necessary for this case. Complications: none Post-operative Condition: stable Disposition: PACU Plan for aftercare: Patient will follow-up postoperative protocol for subacromial decompression.
[2024-06-10 09:10] VITALS: BP 131/83; PULSE 81; RESP 12; O2SAT 97
[2024-06-10 09:15] VITALS: BP 146/76; PULSE 70; RESP 11; O2SAT 97
[2024-06-10 09:22] VITALS: BP 127/82; PULSE 73; RESP 16; TEMP 36.4; O2SAT 98
== END 2024-06-10 10:02 | disposition home or self-care (01) ==
PROVIDERS: PCP Registered Nurse; Referring Provider Orthopaedic Surgery; Visit Provider Orthopaedic Surgery
PROC: (CPT 29827; principal; 2024-06-10 07:45)
DX: M19.011 Primary osteoarthritis, right shoulder (principal); M75.111 Incomplete rotator cuff tear or rupture of right shoulder, not specified as traumatic; M75.41 Impingement syndrome of right shoulder; M65.811 Other synovitis and tenosynovitis, right shoulder; M71.9 Bursopathy, unspecified
CPT/HCPCS: 29823; 29826; 64450; J0171; J0690; J1100; J1885; J2250; J2405; J2704; J3010